=== PATIENT | male | born 1940 | race Caucasian/White ===

== ENCOUNTER 2017-12-27 19:39 | Observation (INO) ==
[2017-12-27] MEDS ORDERED: Dexamethasone 4 MG/ML VIAL IVP ONE (20:05)
[2017-12-27] MEDS ORDERED: Famotidine 20 MG/2 ML VIAL IVP ONE (20:05)
[2017-12-27] MEDS ORDERED: Ondansetron 4 MG/2 ML VIAL IVP ONE (20:20)
[2017-12-27] MEDS: *HR* EPINEPHrine 1 MG/ML AMPUL ONE ×2 (20:29→20:31)
[2017-12-27 21:12] LABS: Basophils % 0.1 %; Eosinophils # 0.1 K/mcL (0.0-0.6); Eosinophils % 0.7 %; Hematocrit 48.7 % (37.5-50.1); Immature Granulocytes % 0.2 % (0-4); Lymphocytes # 1.5 K/mcL (0.6-4.6); Lymphocytes % 17.3 %; Mean Corpuscular HGB Conc 32.9 g/dL (31.6-35.5); Mean Corpuscular Hemoglobin 31.8 pg (28.0-33.3); Mean Corpuscular Volume 96.8 fL (83.0-100.0); Mean Platelet Volume 9.2 fL (9.4-12.4); Monocytes # 0.3 K/mcL (0.0-1.3); Monocytes % 3.9 %; Neutrophils # 6.6 K/mcL (1.6-8.9); Platelet Count 185 K/mcL (140-400); Red Blood Count 5.03 M/mcL (4.19-5.50); Red Cell Distribution Width 13.1 % (11.5-14.5); Segmented Neutrophils % 77.8 %
[2017-12-27 21:39] LABS: Alanine Aminotransferase 13 Units/L (7-52); Albumin 4.1 g/dL (3.5-5.7); Albumin/Globulin Ratio 1.7 (1.1-2.2); Alkaline Phosphatase 70 Units/L (34-104); Aspartate Amino Transferase 17 Units/L (13-39); BUN/Creatinine Ratio 28 (6-26); Bilirubin,Total 0.6 mg/dL (0.3-1.0); Blood Urea Nitrogen 33 mg/dL (8-23); Calcium 9.4 mg/dL (8.6-10.3); Carbon Dioxide 26 mEq/L (23-29); Chloride 104 mEq/L (98-107); Globulin 2.4 g/dL (2.4-3.5); Glucose 149 mg/dL (70-105); Osmolality,Calculated 298 (280-300); Potassium 3.7 mEq/L (3.5-5.1); Sodium 139 mEq/L (136-145); Total Protein 6.5 g/dL (6.4-8.9); Troponin I < 0.03 ng/mL (< 0.04); eGFR For Non-African Americans 59 (> 60)
--- NOTE | 2017-12-27 22:03 | Emergency Department Note ---
Disposition Clinical Impression: Anaphylaxis Disposition: Admitted As Inpatient Condition: Good Time of Disposition: 22:19 Allergic Reaction HPI - General Chief complaint: ED Allergic Reaction Stated complaint: RICKIE Time Seen by Provider: 12/27/17 19:58 Source: patient Mode of arrival: ambulatory Limitations: no limitations Nursing Notes Reviewed: Yes Vital Signs Reviewed: Yes - History of Present Illness HPI Narrative: 77-year-old male presented emergency per for allergic reaction. Patient says that he had an ear infection was first taking amoxicillin he then said he was not getting better so he was seen today and given ciprofloxacin. Once he took one dose Isordil immediately felt very hot flushed and having a rash. He also had a hard time breathing since cause them to come to the emergency department. He did not take any medication for returning here he stays never taking the ciprofloxacin before. Patient otherwise says he has hypertension otherwise no other medical problems. This reaction to medications is never occurred to him in the past. - Related Data Home Medications Medication Instructions Recorded Confirmed Cetirizine HCl [Zyrtec] 10 mg PO DAILY PRN 12/27/17 12/27/17 Lisinopril-HCTZ 20-12.5 [Prinzide 1 tab PO DAILY 12/27/17 12/27/17 20-12.5] Naproxen [Naprosyn] 250 mg PO BID PRN 12/27/17 12/27/17 Rosuvastatin Calcium [Rosuvastatin 10 mg PO DAILY 12/27/17 12/27/17 Calcium] Terazosin [Hytrin] 1 mg PO HS 12/27/17 12/27/17 Allergies Allergy/AdvReac Type Severity Reaction Status Date / Time atorvastatin [From Lipitor] Allergy Cramping Verified 12/27/17 23:09 of the Muscles ciprofloxacin Allergy Difficulty Verified 12/27/17 23:09 Breathing Oxycodone AdvReac See Verified 12/27/17 23:09 Comments All systems ED: reviewed and negative except as stated. Review of Systems: As Per HPI Constitutional: Denies: fever, chills, weakness, weight change Eyes: Denies: eye pain, eye discharge, vision change ENT ED: Denies: ear pain, throat pain, dental pain, hearing loss, epistaxis, congestion, dysphagia Cardiovascular: Denies: chest pain, palpitations, dyspnea on exertion, edema, syncope Respiratory: Reports: dyspnea. Denies: cough, wheezes, hemoptysis, stridor Gastrointestinal: Denies: abdominal pain, nausea, vomiting, diarrhea, constipation, hematemesis, melena, hematochezia Genitourinary: Denies: urgency, dysuria, frequency, hematuria Musculoskeletal: Denies: back pain, neck pain, arthralgia, myalgia Integumentary: Denies: rash, abrasion, lesions Neurological: Denies: headache, weakness, numbness, paresthesias, confusion, abnormal gait, vertigo Psychiatric: Denies: anxiety, depression, suicidal thoughts, homicidal thoughts , auditory hallucinations, visual hallucinations Endocrine: Denies: fatigue Hematological/Lymphatic: Denies: easy bleeding, easy bruising Allergic/Immunologic: Denies: facial swelling, urticaria Past Medical History - Past Medical History Attestation: Yes The following information was validated with the patient. Source: patient Medical history: Reports: hypertension, other Surgical history: Reports: non-contributory - Social History Smoking Status: Current every day smoker Smokeless Tobacco Status: No Alcohol use: Reports: none Drug use: Reports: none Physical Exam - General Limitations: no limitations General appearance: alert - Head Head exam: atraumatic, normocephalic, normal inspection - Eye Eye exam: Present: normal appearance, PERRL, EOMI - ENT ENT exam: normal exam, normal oropharynx, mucous membranes moist - Neck Neck exam: Present: normal inspection, full ROM, trachea midline - Chest Chest inspection: Present: normal inspection, symmetric chest wall rise - Respiratory Respiratory exam: Present: normal lung sounds bilaterally, other (Decreased breath sound bilaterally). Absent: respiratory distress - Cardiovascular Cardiovascular exam: Present: regular rate, normal rhythm, normal heart sounds - Abdominal Exam Abdominal exam: Present: soft, Non-Tender. Absent: tenderness, distention, guarding, rebound, rigidity - Extremities Exam Extremities exam: Present: normal inspection, full ROM. Absent: tenderness, pedal edema - Back Exam Back exam: Present: normal inspection, full ROM. Absent: tenderness - Neurological Exam Neurological exam: Present: alert, oriented X3 - Skin Skin exam: Present: warm, dry, intact, normal color, rash (Generalized erythematous rash all over body.), erythema Course Course Narrative: Patient presented with anaphylactic reaction. We will give patient IM epi, Pepcid, Benadryl, Decadron. We will get basic labs including CBC and BMP. Most likely disposition will be admission. - Reevaluation(s) Reevaluation #1: Patient reevaluated in said he had a much better time breathing after receiving the medications. He does feel more comfortable at this time. There is no respiratory distress and no difficulty breathing. He does have increased breath sounds bilaterally when reevaluating him Time: 22:05 - Consultations Consultation #1: Spoke to the on-call hospitalist Dr. Sarkar who agreed to admit the patient to their service. Patient admitted in stable condition Time: 22:46 Vital Signs Temperature 98.9 F 12/27/17 19:47 Pulse Rate 99 12/27/17 19:47 Respiratory Rate 20 12/27/17 19:47 Blood Pressure 135/88 12/27/17 19:47 O2 Sat by Pulse Oximetry 92 12/27/17 19:47 Temperature 97.4 F L 12/28/17 03:49 Pulse Rate 68 12/28/17 03:49 Respiratory Rate 14 12/28/17 03:49 Blood Pressure 149/79 12/28/17 03:49 O2 Sat by Pulse Oximetry 95 12/28/17 03:49 Oxygen Delivery Oxygen Delivery Room Air Allergic Reaction - MDM Narrative Medical decision making narrative: 77-year-old male here for anaphylaxis. This is my most likely secondary to ciprofloxacin. Patient was given Pepcid, Decadron, Benadryl as well as intramuscular epinephrine. Patient responded well to this. He was able to breathe after this. Due to giving epinephrine we felt admission for observation overnight would be warranted. Patient agreed with the plan. Patient's labs showed no acute findings troponin was negative. Patient is going to be admitted to the hospitalist service. They did agree to accept the patient to their service. Patient admitted in stable condition - Medical Records Medical records reviewed: Yes I reviewed the patient's medical records. - Lab Data Lab results reviewed: Yes I reviewed the patient's lab results. Result diagrams: 12/27/17 21:01 12/27/17 21: Lab Results 12/27/17 12/27/17 12/27/17 Range/Units 21:01 21:01 21:01 WBC 8.5 (4.3-11.1) K/mcL RBC 5.03 (4.19-5.50) M/mcL Hgb 16.0 (12.9-16.9) g/dL Hct 48.7 (37.5-50.1) % MCV 96.8 (83.0-100.0) fL MCH 31.8 (28.0-33.3) pg MCHC 32.9 (31.6-35.5) g/dL RDW 13.1 (11.5-14.5) % Plt Count 185 (140-400) K/mcL MPV 9.2 L (9.4-12.4) fL Immature Gran % 0.2 (0-4) % Seg Neutrophils % 77.8 % Lymphocytes % 17.3 % Monocytes % 3.9 % Eosinophils % 0.7 % Basophils % 0.1 % Neutrophils # 6.6 (1.6-8.9) K/mcL Lymphocytes # 1.5 (0.6-4.6) K/mcL Monocytes # 0.3 (0.0-1.3) K/mcL Eosinophils # 0.1 (0.0-0.6) K/mcL Basophils # 0.0 (0.0-0.2) K/mcL Sodium 139 (136-145) mEq/L Potassium 3.7 (3.5-5.1) mEq/L Chloride 104 (98-107) mEq/L Carbon Dioxide 26 (23-29) mEq/L BUN 33 H (8-23) mg/dL Creatinine 1.19 (0.70-1.30) mg/dL Est GFR ( Amer) > 60 (> 60) Est GFR (Non-Af Amer) 59 L (> 60) BUN/Creatinine Ratio 28 H (6-26) Glucose 149 H (70-105) mg/dL Calculated Osmolality 298 (280-300) Calcium 9.4 (8.6-10.3) mg/dL Total Bilirubin 0.6 (0.3-1.0) mg/dL AST 17 (13-39) Units/L ALT 13 (7-52) Units/L Alkaline Phosphatase 70 (34-104) Units/L Troponin I < 0.03 (< 0.04) ng/mL B-Natriuretic Peptide 29 (Less than 100) pg/mL Serum Total Protein 6.5 (6.4-8.9) g/dL Albumin 4.1 (3.5-5.7) g/dL Globulin 2.4 (2.4-3.5) g/dL Albumin/Globulin Ratio 1.7 (1.1-2.2) - Radiology Data Radiology results reviewed: Yes I reviewed the patient's radiology results. - EKG Data EKG attestation: Yes I reviewed and interpreted this EKG. EKG results narrative: EKG done at 2031 review myself and the attending shows sinus rhythm at a rate of 85, SD interval 171, QRS 91, QTC [address] axis. No acute ST changes no acute T-wave changes no other signs of ischemia. No WPW/Brugada/HOCM. No heartstring, heart block, hypertrophy. EKG otherwise has no changes when compared with old one done 09/06/14 Attestation Statement - Attestation Attestation: I examined this patient and my medical decision-making was reviewed with the Resident Physician. I agree with the documented findings, disposition and treatment plan as described except to the extent set forth below. Findings consistent with anaphylactic shock. The patient has significant dyspnea and required epinephrine intramuscularly. He did respond to epinephrine as well as antihistamine therapy. He will be admitted for observation given age and half- life of ciprofloxacin which was the offending agent. I spent greater than 35 minute critical care time resuscitating this acutely ill patient suffering from anaphylactic shock. This was excluding billable procedures.
--- NOTE | 2017-12-28 02:04 | Internal Med History&Physical ---
Date of Encounter: 12/28/17 Time of Encounter: 01:59 Internal Medicine - H&P: HPI Chief complaint: rash,sob Admitted From: Home Plans for Post Hospital Care: Home History of present illness: Mr. Dukes is a 77 year old male presents with chief complaint of sudden onset of rash, shortness of breath. Patient states that he was being treated for left ear infection last month with amoxicillin however this did not resolve his symptoms and his PCP started him on ciprofloxacin. Patient took 1 dose of ciprofloxacin and immediately started having a diffuse whole body rash and difficulty breathing with chest heaviness. Patient was immediately to into the emergency room by his . Along the way his shortness of breath and rash continued to worsen. Patient denied syncope, confusion. In the emergency department patient was given Decadron, Pepcid, Benadryl as well as intramuscular epinephrine. His shortness of breath and rash improved. During my examination patient did not have any shortness of breath or rash. He continues to report left ear drainage but denies pain. The drainage is clear. He denies fever, chills. He does report he has had some rhinorrhea, sinus pressure in the past but currently does not have this. Past Med Surg Social Fam HX - Past Medical History Medical history: hypertension, other - Past Surgical History Surgical History: non-contributory - Social History Smoking Status: Current every day smoker Packs per day: 1/2 Smokeless Tobacco Status: No Alcohol use: none Drug use: none - Family History Father Age at : 89 Cause of : Alzheimers Hx Family Cardiac Disorders: Yes (HTN) Hx Family Respiratory Disorders: No Hx Family Cancer: No Hx Family GI Disorders: No Hx Family Genitourinary Disorders: No Hx Family Endocrine Disorder: No Hx Family Musculoskeletal Disorders: No Hx Family Neuromuscular Disorders: No Hx Family Neurologic Disorders: Yes (Alzheimers) Hx Family HEENT Disorders: No Hx Family Autoimmune Disorders: No Hx Family Reproductive Disorders: No Hx Family Psychosocial Disorders: No Hx Family Medical Disorders: No Mother Age at : 89 Cause of : Natural causes Hx Family Cardiac Disorders: Yes (Angina) Hx Family Respiratory Disorders: Yes (COPD) Hx Family Cancer: No Hx Family GI Disorders: No Hx Family Genitourinary Disorders: No Hx Family Endocrine Disorder: Yes (DM) Hx Family Musculoskeletal Disorders: No Hx Family Neuromuscular Disorders: No Hx Family Neurologic Disorders: No Hx Family HEENT Disorders: No Hx Family Autoimmune Disorders: No Hx Family Reproductive Disorders: No Hx Family Psychosocial Disorders: No Hx Family Medical Disorders: No Internal Medicine - H&P: Meds Cetirizine HCl [Zyrtec] 10 mg PO DAILY PRN 12/27/17 [History] Lisinopril-HCTZ 20-12.5 [Prinzide 20-12.5] 1 tab PO DAILY 12/27/17 [History] Naproxen [Naprosyn] 250 mg PO BID PRN 12/27/17 [History] Rosuvastatin Calcium [Rosuvastatin Calcium] 10 mg PO DAILY 12/27/17 [History] Terazosin [Hytrin] 1 mg PO HS 12/27/17 [History] 3 Allergy/AdvReac Type Severity Reaction Status Date / Time atorvastatin [From Lipitor] Allergy Cramping Verified 12/27/17 23:09 of the Muscles ciprofloxacin Allergy Difficulty Verified 12/27/17 23:09 Breathing Oxycodone AdvReac See Verified 12/27/17 23:09 Comments All Systems PM: A 10-system review of systems was performed and is negative for pertinent findings except as documented above in the HPI. Review of systems: Constitutional: Denies fever, chills HEENT: Denies headache, trauma, blurry vision, eye discharge, ear pain, neck pain, sore throat, rhinorrhea. Reports ear discharge Heart: Denies chest pain palpitations, LE edema Lungs: Poor shortness of breath, cough Abdomen: Denies abdominal pain nausea vomiting diarrhea MSK: Denies back pain, falls, joint pain Kidney: Denies dysuria, hematuria Skin: Denies rash, ulcers Neuro: Denies numbness and tingling Psych: denies anxiety, depression - Constitutional Vitals: Temp Pulse Resp BP Pulse Ox 97.7 F 68 14 143/81 96 12/27/17 23:30 12/27/17 23:30 12/27/17 23:30 12/27/17 23:30 12/27/17 23:30 Exam: General: pleasant, without distress HEENT: Head atraumatic, normocephalic, EOMI, PERRL, Moist Mucous Membranes, uvula midline. Patient has left ear serous drainage without erythema or pressure behind tympanic membrane. Right ear within normal limits. Neck: nontender to palpation, absent lymphadenopathy, Cardiovascualr: Regular rate and rhythm with no murmur, absent gallops or rubs, absent pedal edema, radial pulses 2 out of 4 Lungs: Clear to auscultation bilaterally, not in respiratory distress Abdomen: Soft nontender, nondistended positive bowel sounds, absent hepatomegaly Skin: warm and dry, absent rash, absent open wounds and nodules MSK: absent clubbing, cyanosis, joints without swelling Neuro: Cranial nerves II through XII intact, UE and LE sensation equal bilaterally, UE and LE strength 5/5, alert oriented 3, Psych: good insight and judgment Internal Med - H&P Results - Labs CBC & Chem 7: 12/27/17 21:01 12/27/17 21:01 - Assessment and plan (1) Anaphylaxis Current Visit: Yes Status: Resolved Assessment and plan: Secondary to ciprofloxacin Ciprofloxacin added to allergy list Patient vitals are stable. Rash and shortness of breath is resolved Benadryl when necessary We will observe patient overnight on telemetry and if stable in the morning of discharge. Qualifiers: Encounter type: initial encounter Qualified Code(s): T78.2XXA - Anaphylactic shock, unspecified, initial encounter (2) Otitis externa Current Visit: Yes Status: Acute Assessment and plan: Likely this otitis externa secondary to viral cause His serous drainage There also may be a component of seasonal allergy as he does report rhinorrhea, sinus pressure in the past as well as watery eyes Plan: Currently we will not put patient on any more antibiotics for this. Qualifiers: Otitis externa type: noninfectious Noninfectious otitis externa type: other type Chronicity: acute Laterality: right Qualified Code(s): H60.591 - Other noninfective acute otitis externa, right ear (3) DVT prophylaxis Current Visit: Yes Status: Acute Assessment and plan: Ambulate 3 times a day, ABCDs. (4) Hypertension Current Visit: Yes Status: Chronic Assessment and plan: Controlled. Continue lisinopril. Qualifiers: Hypertension type: essential hypertension Qualified Code(s): I10 - Essential (primary) hypertension - Time Spent With Patient Total time spent is greater than 50% in coordination of care (as documented) at patient's floor/unit and/or counseling patient:
[2017-12-28] MEDS ORDERED: Lisinopril-HCTZ 20-12.5mg TABLET PO SCH (09:00)
[2017-12-28 11:54] VITALS: BP 167/88
--- NOTE | 2017-12-28 14:51 | Discharge Summary ---
- NOTES TO OUTPATIENT PROVIDER Notes to Outpatient Provider: Mr. Quinones is a 77-year-old male who entered with anaphylactic reaction after taking by mouth ciprofloxacin. He developed shortness of breath and difficulty breathing with a. Macular papular rash. He was treated in the emergency room with Benadryl and prednisone and his signs and symptoms have since resolved. Patient states that his history is positive for the past several months for an otitis externa. He currently is being cared for by ENT and was prescribed Cipro otic drops which she has been on for the past month without resolution of the otitis externa and no allergic reaction to the topicals. He reports that his bearing maker had put in a tympanostomy tube which was created the secondary otitis externa due to excessive drainage. He last visited his ENT is when he was placed a few days ago on Cipro by mouth , and he stated he had only taken one tablet when he developed anaphylactic reaction. Today he denies any rash difficulty breathing dyspnea shortness of breath chest pain or pruritus. CBC with differential was obtained in the emergency room and is negative. BUN was slightly elevated at 33 with GFR of 59 glucose was elevated at 1 4090 does have history of type 2 diabetes. Troponins were drawn and were negative 1. We will be discharged ambulatory in a stable condition to his home accompanied by his to continue his home medications of lisinopril hydrochlorothiazide robust statin and Hytrin. He has a current appointment with his ENT on January 02 and he is to keep that appointment for follow-up. At this time there will be no additional antibiotics given pending follow-up with ENT Orders not resulted at time of discharge: none Date of Encounter: 12/28/17 Time of Encounter: 14:45 - Discharge Diagnosis (1) Anaphylaxis Priority: Primary Status: Resolved Assessment and Plan: Today he denies any pruritus rash itching or shortness of breath we will discharge him home Qualifiers: Encounter type: subsequent encounter Qualified Code(s): T78.2XXD - Anaphylactic shock, unspecified, subsequent encounter (2) Hypertension Priority: Secondary Status: Chronic Assessment and Plan: Review of vital signs shows that the patient is uncontrolled on his current medications he is to follow-up with primary care last of blood pressure was running stage II at 167/88. Qualifiers: Hypertension type: essential hypertension Qualified Code(s): I10 - Essential (primary) hypertension (3) Otitis externa Priority: Secondary Status: Acute Assessment and Plan: Patient reports that he has had otitis externa with treatment of Cipro otic drops for 1 month reports that he also had a tympanostomy tube placed per ENT and now he has copious amounts of drainage which contribute to the externa Patient is to follow-up with an already scheduled ENT appointment on 01/02/2018 Qualifiers: Otitis externa type: noninfectious Noninfectious otitis externa type: other type Chronicity: chronic Laterality: left Qualified Code(s): H60.8X2 - Other otitis externa, left ear (4) DVT prophylaxis Priority: Secondary Status: Resolved Hospital course: Mr. Dukes is a 77 year old male Discharge discussed with: patient, family - Time Spent with Patient Total time spent providing and/or coordinating discharge services: Less than 30 minutes - Discharge Medications Home Medications: Cetirizine HCl [Zyrtec] 10 mg PO DAILY PRN 12/27/17 [History] Lisinopril-HCTZ 20-12.5 [Prinzide 20-12.5] 1 tab PO DAILY 12/27/17 [History] Naproxen [Naprosyn] 250 mg PO BID PRN 12/27/17 [History] Rosuvastatin Calcium [Rosuvastatin Calcium] 10 mg PO DAILY 12/27/17 [History] Terazosin [Hytrin] 1 mg PO HS 12/27/17 [History] Allergies/Adverse Reactions: 3 Allergy/AdvReac Type Severity Reaction Status Date / Time atorvastatin [From Lipitor] Allergy Cramping Verified 12/27/17 23:09 of the Muscles ciprofloxacin Allergy Difficulty Verified 12/27/17 23:09 Breathing Oxycodone AdvReac See Verified 12/27/17 23:09 Comments Date of admission: 12/27/17 23:00 Primary care physician: Hyacinth Lizarraga DO Discharging clinician: Aicha Florence Anticipated date of discharge: 12/28/17 - Constitutional Vitals: Temp Pulse Resp BP Pulse Ox 98.2 F 65 16 167/88 95 12/28/17 11:52 12/28/17 11:52 12/28/17 11:52 12/28/17 11:52 12/28/17 11:52 General appearance: Present: A&O X 3, no acute distress, answers questions appropriately Exam: Stage 2 Hypertension noted, currently take Lisinopril/HCTZ , and Hytrin Roel f/u with PCP regarding elevation of b/p during stay to check b/p routinely mild elevations may be due to Benadryl administration for allergic reaction to Cipro PO. - Head Head exam: Present: atraumatic, normocephalic - Eye Eye exam: Present: PERRL, conjuntiva pink, sclera anicteric Pupils: Present: PERRL - ENT ENT exam: Present: mucous membranes moist - Neck Neck exam general surgery: Present: supple, trachea midline. Absent: lymphadenopathy - Respiratory Respiratory exam: Present: CTAB. Absent: accessory muscle use, rales, rhonchi, wheezes - Cardiovascular Cardiovascular exam: Present: RRR, +S1, +S2. Absent: diastolic murmur, gallop, rubs, systolic murmur - GI/Abdominal GI/Abdominal exam: Present: normal bowel sounds, soft, no peritoneal signs. Absent: distended, tenderness - Extremities Exam Extremities exam: Present: warm, radial pulses palpable and symmetrical. Absent : calf tenderness, cyanotic, pedal edema - Neurological Exam Neurological exam: Present: CN II-XII intact, oriented X3, no focal deficits. Absent: pronater drift, facial droop, speech deficit - Skin Skin exam: Present: dry, intact Additional comments: negative for acute rash - Patient Status Disposition: Home, Self-Care Condition: Good Functional capacity at discharge: independent ambulation - Discharge Instructions Instructions: Chronic Hypertension (DC) Follow Up With: Hyacinth Lizarraga DO [Primary Care Provider] - (Requested a follow up appointment in 7-10 days. ) - Diet and Activity Activity: resume usual activities as tolerated (To keep Jan 02 appointment with ENT )
--- NOTE | 2017-12-30 17:49 | Electrocardiograph Report ---
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
== END 2017-12-28 16:12 | disposition home or self-care (01) ==
LOC: EMEROOARM 19:39 → 3BNU 19:39
PROVIDERS: ADMIT Family Medicine; ATTEND Family Medicine

== ENCOUNTER 2019-11-24 00:52 | Inpatient (IN) ==
[2019-11-24] MEDS ORDERED: Ondansetron 4 MG/2 ML VIAL IVP ONE (01:13)
[2019-11-24] MEDS ORDERED: 0.9 % Sodium Chloride 1,000 ML IVC ONE (01:13)
[2019-11-24] MEDS ORDERED: Isovue-370 500 ML BOTTLE IVP ONE (01:13)
[2019-11-24 01:43] LABS: Bilirubin,Urine Large (Negative); Blood,Urine Small (Negative); Clarity,Urine Clear (Clear); Color,Urine Yellow (Yellow); Glucose,Urine (UA) 100 mg/dL (Normal); Ketones,Urine Trace mg/dL (Negative); Leukocyte Esterase,Urine Negative (Negative); Nitrite,Urine Negative (Negative); PH,Urine 5.5 pH Units (5.0-8.0); Protein,Urine 30 mg/dL (Neg-Trace); Specific Gravity,Urine >= 1.030 (1.010-1.025)
[2019-11-24 01:52] LABS: Prothrombin Time 11.7 Seconds (9.4-12.1)
[2019-11-24 01:54] LABS: Activated Partial Thrombo Time 31.9 Seconds (26.0-36.0)
[2019-11-24 01:55] LABS: Basophils % 0.3 %; Eosinophils # 0.1 K/mcL (0.0-0.6); Hemoglobin 15.1 g/dL (12.9-16.9); Immature Granulocytes % 0.3 % (0-4); Lymphocytes # 0.6 K/mcL (0.6-4.6); Lymphocytes % 6.6 %; Mean Corpuscular HGB Conc 32.1 g/dL (31.6-35.5); Mean Corpuscular Hemoglobin 31.6 pg (28.0-33.3); Mean Corpuscular Volume 98.3 fL (83.0-100.0); Mean Platelet Volume 9.9 fL (9.4-12.4); Monocytes # 0.5 K/mcL (0.0-1.3); Monocytes % 6.2 %; Neutrophils # 7.4 K/mcL (1.6-8.9); Platelet Count 187 K/mcL (140-400); Red Blood Count 4.78 M/mcL (4.19-5.50); Red Cell Distribution Width 13.2 % (11.5-14.5); Segmented Neutrophils % 85.6 %; White Blood Count 8.7 K/mcL (4.3-11.1)
[2019-11-24 01:58] LABS: Bacteria,Urine Few per hpf (None-Few); RBC,Urine 0-3 per hpf (0-3); Squamous Epithelial Cell,Urine Few per hpf (None-Few); WBC,Urine 0-3 per hpf (0-3)
[2019-11-24 02:16] LABS: Alanine Aminotransferase 180 Units/L (7-52); Albumin 3.6 g/dL (3.5-5.7); Albumin/Globulin Ratio 1.2 (1.1-2.2); Alkaline Phosphatase 430 Units/L (34-104); Aspartate Amino Transferase 65 Units/L (13-39); BUN/Creatinine Ratio 29 (6-26); Bilirubin,Indirect 2.3 mg/dL (0.0-1.0); Bilirubin,Total 6.3 mg/dL (0.3-1.0); Blood Urea Nitrogen 42 mg/dL (8-23); Calcium 9.1 mg/dL (8.6-10.3); Carbon Dioxide 27 mEq/L (23-29); Chloride 102 mEq/L (98-107); Globulin 2.9 g/dL (2.4-3.5); Glucose 106 mg/dL (70-105); Osmolality,Calculated 303 (280-300); Potassium 3.2 mEq/L (3.5-5.1); Sodium 141 mEq/L (136-145); Total Protein 6.5 g/dL (6.4-8.9); Troponin I 0.03 ng/mL (< 0.04); eGFR For African Americans 58 (> 60); eGFR For Non-African Americans 48 (> 60)
[2019-11-24 02:19] LABS: Lipase > 1800 Units/L (11-82)
[2019-11-24] MEDS ORDERED: Piperacillin/Tazobactam 3.375 GM in 0.9 % Sodium Chloride Mini Bag 100 ML IVPB ONE (04:11)
[2019-11-24] MEDS ORDERED: Potassium Chloride Elixir 20 MEQ/15 ML UDC PO ONE (05:03)
[2019-11-24] MEDS ORDERED: Ondansetron 4 MG/2 ML VIAL IVP PRN (05:49)
[2019-11-24] MEDS ORDERED: Naloxone 0.4 MG/ML INJ IVP PRN (05:49)
[2019-11-24] MEDS ORDERED: Ringers Solution, Lactated 1,000 ML IVC ONE (05:55)
[2019-11-24] MEDS ORDERED: Ringers Solution, Lactated 1,000 ML IVC SCH (07:00)
[2019-11-24] MEDS: Nicotine 14 MG PATCH.TD24 TD SCH (07:38)
[2019-11-24 09:20] LABS: Hepatitis B Surface Antigen Nonreactive (Nonreactive)
[2019-11-24 09:33] LABS: Chol/HDL Ratio 3.8 (0-4.9); Cholesterol 200 mg/dL (< 200); HDL Cholesterol 53 mg/dL (40-59); LDL Cholesterol,Calculated 126 mg/dL (< 100); Triglycerides 103 mg/dL (< 150)
[2019-11-24 09:48] LABS: Hepatitis C Virus Antibody Nonreactive (Nonreactive)
[2019-11-24 09:50] LABS: Hepatitis B Core IgM Nonreactive (Nonreactive)
[2019-11-24 09:51] LABS: Hepatitis A Antibody IgM Nonreactive (Nonreactive)
[2019-11-24] MEDS ORDERED: Piperacillin/Tazobactam 3.375 GM in 0.9 % Sodium Chloride Mini Bag 100 ML IVPB SCH (12:00)
[2019-11-24] MEDS: Ringers Solution, Lactated 1,000 ML IVC SCH ×2 (12:49→16:02)
[2019-11-24] MEDS ORDERED: *HR* Succinylcholine 200 MG/10 ML VIAL IVP ONE (14:52)
[2019-11-24] MEDS ORDERED: Ondansetron 4 MG/2 ML VIAL ONE (14:52)
[2019-11-24] MEDS ORDERED: *HR* FentaNYL (PF) 100 MCG/2 ML VIAL ONE (14:52)
[2019-11-24] MEDS ORDERED: Dexamethasone 4 MG/ML VIAL ONE (14:52)
[2019-11-24] MEDS ORDERED: Lidocaine -MPF 2% 2 ML VIAL ONE (14:52)
[2019-11-24] MEDS ORDERED: *HR* Propofol 200 MG/20 ML VIAL IVP ONE (14:53)
[2019-11-24] MEDS ORDERED: *HR* PHENYLEPHRINE 1,000 MCG/10 ML SYRINGE IVP ONE (15:16)
[2019-11-24] MEDS ORDERED: EPHEDrine 50 MG/ML VIAL ONE (15:20)
[2019-11-24] MEDS ORDERED: Indomethacin 50 MG SUPP.RECT RC ONE (15:45)
[2019-11-24] MEDS: Piperacillin/Tazobactam 3.375 GM in 0.9 % Sodium Chloride Mini Bag 100 ML IVPB SCH ×2 (17:17→23:04)
[2019-11-25] MEDS: Ringers Solution, Lactated 1,000 ML IVC SCH ×5 (00:59→21:29)
[2019-11-25 03:11] LABS: Basophils % 0.2 %; Hematocrit 39.3 % (37.5-50.1); Immature Granulocytes % 0.2 % (0-4); Lymphocytes # 0.6 K/mcL (0.6-4.6); Lymphocytes % 9.2 %; Mean Corpuscular HGB Conc 31.8 g/dL (31.6-35.5); Mean Corpuscular Hemoglobin 31.9 pg (28.0-33.3); Mean Corpuscular Volume 100.3 fL (83.0-100.0); Mean Platelet Volume 9.9 fL (9.4-12.4); Monocytes # 0.3 K/mcL (0.0-1.3); Monocytes % 4.2 %; Neutrophils # 5.1 K/mcL (1.6-8.9); Platelet Count 132 K/mcL (140-400); Red Blood Count 3.92 M/mcL (4.19-5.50); Red Cell Distribution Width 13.7 % (11.5-14.5); Segmented Neutrophils % 86.2 %
[2019-11-25 03:12] LABS: Hemoglobin 12.5 g/dL (12.9-16.9)
[2019-11-25 03:30] LABS: Alanine Aminotransferase 102 Units/L (7-52); Albumin 2.9 g/dL (3.5-5.7); Albumin/Globulin Ratio 1.3 (1.1-2.2); Alkaline Phosphatase 350 Units/L (34-104); Aspartate Amino Transferase 35 Units/L (13-39); BUN/Creatinine Ratio 37 (6-26); Bilirubin,Total 4.2 mg/dL (0.3-1.0); Blood Urea Nitrogen 46 mg/dL (8-23); Calcium 8.5 mg/dL (8.6-10.3); Carbon Dioxide 25 mEq/L (23-29); Chloride 106 mEq/L (98-107); Globulin 2.3 g/dL (2.4-3.5); Glucose 111 mg/dL (70-105); Magnesium 1.7 mg/dL (1.6-2.6); Osmolality,Calculated 301 (280-300); Phosphorous 4.3 mg/dL (2.7-4.5); Sodium 139 mEq/L (136-145); Total Protein 5.2 g/dL (6.4-8.9); eGFR For African Americans > 60 (> 60); eGFR For Non-African Americans 55 (> 60)
[2019-11-25] MEDS ORDERED: *HR* Succinylcholine 200 MG/10 ML VIAL IVP ONE (07:18)
[2019-11-25] MEDS ORDERED: *HR* Rocuronium Bromide 50 MG/5 ML VIAL ONE (07:18)
[2019-11-25] MEDS ORDERED: *HR* FentaNYL (PF) 100 MCG/2 ML VIAL ONE ×2 (07:18→08:53)
[2019-11-25] MEDS ORDERED: Lidocaine -MPF 2% 2 ML VIAL ONE (07:18)
[2019-11-25] MEDS ORDERED: *HR* Propofol 200 MG/20 ML VIAL IVP ONE (07:18)
[2019-11-25] MEDS ORDERED: Lidocaine HCL 4 ML Topical Solution (Laryng-O-Jet Kit Sterile Pak) TP ONE (07:18)
[2019-11-25] MEDS ORDERED: Isovue-300 50ML VIAL ONE (07:48)
[2019-11-25] MEDS: Piperacillin/Tazobactam 3.375 GM in 0.9 % Sodium Chloride Mini Bag 100 ML IVPB SCH ×3 (08:15→23:54)
[2019-11-25] MEDS ORDERED: Ondansetron 4 MG/2 ML VIAL ONE (08:29)
[2019-11-25] MEDS ORDERED: Dexamethasone 4 MG/ML VIAL ONE (08:29)
[2019-11-25] MEDS ORDERED: Neostigmine Methylsulfate 3 MG/3 ML SYRINGE ONE (08:29)
[2019-11-25] MEDS ORDERED: EPHEDrine 50 MG/ML VIAL ONE (08:30)
[2019-11-25] MEDS ORDERED: Naloxone 0.4 MG/ML INJ IVP PRN (09:29)
[2019-11-25] MEDS ORDERED: Ondansetron 4 MG/2 ML VIAL IVP PRN (09:29)
[2019-11-25] MEDS ORDERED: *HR* OxyCODONE/APAP 5/325 TABLET PO PRN (11:01)
[2019-11-25] MEDS ORDERED: Morphine Sulfate 2 MG/ML SYRINGE IVP PRN (11:02)
[2019-11-25] MEDS: Nicotine 14 MG PATCH.TD24 TD SCH (20:35)
[2019-11-26] MEDS: Ringers Solution, Lactated 1,000 ML IVC SCH (03:30)
[2019-11-26 07:47] LABS: Eosinophils % 0.1 %; Hematocrit 39.4 % (37.5-50.1); Hemoglobin 12.4 g/dL (12.9-16.9); Immature Granulocytes % 0.5 % (0-4); Lymphocytes # 0.9 K/mcL (0.6-4.6); Lymphocytes % 11.6 %; Mean Corpuscular HGB Conc 31.5 g/dL (31.6-35.5); Mean Corpuscular Hemoglobin 31.8 pg (28.0-33.3); Mean Platelet Volume 10.3 fL (9.4-12.4); Monocytes # 0.6 K/mcL (0.0-1.3); Monocytes % 7.3 %; Neutrophils # 6.4 K/mcL (1.6-8.9); Platelet Count 168 K/mcL (140-400); Red Cell Distribution Width 13.8 % (11.5-14.5); Segmented Neutrophils % 80.5 %
[2019-11-26 07:56] LABS: Alanine Aminotransferase 78 Units/L (7-52); Albumin 2.6 g/dL (3.5-5.7); Albumin/Globulin Ratio 1.1 (1.1-2.2); Alkaline Phosphatase 249 Units/L (34-104); Aspartate Amino Transferase 32 Units/L (13-39); BUN/Creatinine Ratio 32 (6-26); Bilirubin,Total 1.8 mg/dL (0.3-1.0); Blood Urea Nitrogen 33 mg/dL (8-23); Calcium 8.4 mg/dL (8.6-10.3); Carbon Dioxide 30 mEq/L (23-29); Chloride 105 mEq/L (98-107); Globulin 2.3 g/dL (2.4-3.5); Glucose 111 mg/dL (70-105); Magnesium 1.8 mg/dL (1.6-2.6); Osmolality,Calculated 296 (280-300); Phosphorous 1.8 mg/dL (2.7-4.5); Potassium 3.8 mEq/L (3.5-5.1); Sodium 139 mEq/L (136-145); Total Protein 4.9 g/dL (6.4-8.9); eGFR For African Americans > 60 (> 60); eGFR For Non-African Americans > 60 (> 60)
[2019-11-26] MEDS: Piperacillin/Tazobactam 3.375 GM in 0.9 % Sodium Chloride Mini Bag 100 ML IVPB SCH (08:18)
[2019-11-26] MEDS ORDERED: Nicotine 14 MG PATCH.TD24 TD SCH (09:00)
[2019-11-26 11:42] VITALS: BP 163/90
== END 2019-11-26 12:46 | disposition home or self-care (01) | DRG 417 ==
LOC: 3BNU 00:52 → EMEROOARM 00:52 → SUATTDRO 05:58 → 3BNU 06:18
PROVIDERS: ADMIT Student in an Organized Health Care Education/Training Program; ATTEND Internal Medicine

== ENCOUNTER 2021-04-17 20:42 | Inpatient (IN) ==
[2021-04-17] MEDS ORDERED: Isovue-370 500 ML BOTTLE IVP ONE (21:32)
[2021-04-17 21:43] LABS: Basophils # 0.1 K/mcL (0.0-0.2); Basophils % 0.7 %; Eosinophils # 0.2 K/mcL (0.0-0.6); Eosinophils % 2.3 %; Hematocrit 48.1 % (37.5-50.1); Hemoglobin 15.6 g/dL (12.9-16.9); Immature Granulocytes % 0.1 % (0-4); Lymphocytes # 1.7 K/mcL (0.6-4.6); Lymphocytes % 23.2 %; Mean Corpuscular HGB Conc 32.4 g/dL (31.6-35.5); Mean Corpuscular Hemoglobin 32.7 pg (28.0-33.3); Mean Corpuscular Volume 100.8 fL (83.0-100.0); Mean Platelet Volume 9.6 fL (9.4-12.4); Monocytes # 0.7 K/mcL (0.0-1.3); Neutrophils # 4.7 K/mcL (1.6-8.9); Platelet Count 217 K/mcL (140-400); Red Blood Count 4.77 M/mcL (4.19-5.50); Red Cell Distribution Width 12.7 % (11.5-14.5); Segmented Neutrophils % 64.7 %; White Blood Count 7.3 K/mcL (4.3-11.1)
[2021-04-17 21:50] LABS: Prothrombin Time 11.6 Seconds (9.4-12.1)
[2021-04-17 21:53] LABS: Activated Partial Thrombo Time 32.1 Seconds (26.0-36.0)
[2021-04-17 22:03] LABS: Alanine Aminotransferase 10 Units/L (7-52); Albumin 3.9 g/dL (3.5-5.7); Albumin/Globulin Ratio 1.6 (1.1-2.2); Alkaline Phosphatase 66 Units/L (34-104); Aspartate Amino Transferase 12 Units/L (13-39); BUN/Creatinine Ratio 28 (6-26); Bilirubin,Total 0.4 mg/dL (0.3-1.0); Blood Urea Nitrogen 33 mg/dL (8-23); Calcium 9.1 mg/dL (8.6-10.3); Carbon Dioxide 35 mEq/L (23-29); Chloride 102 mEq/L (98-107); Globulin 2.5 g/dL (2.4-3.5); Glucose 95 mg/dL (70-105); Osmolality,Calculated 299 (280-300); Potassium 3.7 mEq/L (3.5-5.1); Sodium 141 mEq/L (136-145); Total Protein 6.4 g/dL (6.4-8.9); Troponin I < 0.03 ng/mL (< 0.04); eGFR For African Americans > 60 (> 60); eGFR For Non-African Americans > 60 (> 60)
[2021-04-18 00:57] LABS: Bilirubin,Urine Negative (Negative); Blood,Urine Negative (Negative); Clarity,Urine Clear (Clear); Color,Urine Light-Yellow (Yellow); Glucose,Urine (UA) Normal (Normal); Ketones,Urine Negative (Negative); Leukocyte Esterase,Urine Negative (Negative); Nitrite,Urine Negative (Negative); PH,Urine 6.5 pH Units (5.0-8.0); Protein,Urine Trace mg/dL (Neg-Trace); Specific Gravity,Urine > 1.030 (1.010-1.025); Urobilinogen,Urine Normal (Normal)
[2021-04-18] MEDS ORDERED: Naloxone 0.4 MG/ML INJ IVP PRN (02:12)
[2021-04-18] MEDS ORDERED: Melatonin 3 MG TABLET PO PRN (02:12)
[2021-04-18] MEDS ORDERED: Ondansetron ODT 4 MG TAB.RAPDIS SL PRN (02:12)
[2021-04-18] MEDS ORDERED: Perflutren Lipid Microsphere 1.3 ML in 0.9 % Sodium Chloride 8.7 ML IVP PRN (02:32)
[2021-04-18 06:25] LABS: Prothrombin Time 11.6 Seconds (9.4-12.1)
[2021-04-18 06:47] LABS: Alanine Aminotransferase 9 Units/L (7-52); Albumin 3.4 g/dL (3.5-5.7); Albumin/Globulin Ratio 1.5 (1.1-2.2); Alkaline Phosphatase 58 Units/L (34-104); Aspartate Amino Transferase 12 Units/L (13-39); BUN/Creatinine Ratio 29 (6-26); Bilirubin,Total 0.3 mg/dL (0.3-1.0); Blood Urea Nitrogen 29 mg/dL (8-23); Calcium 8.7 mg/dL (8.6-10.3); Carbon Dioxide 28 mEq/L (23-29); Chloride 104 mEq/L (98-107); Cholesterol 216 mg/dL (< 200); Globulin 2.2 g/dL (2.4-3.5); Glucose 109 mg/dL (70-105); HDL Cholesterol 54 mg/dL (40-59); LDL Cholesterol,Calculated 143 mg/dL (< 100); LDL Cholesterol,Direct 143 mg/dL (75-193); Magnesium 1.9 mg/dL (1.6-2.6); Osmolality,Calculated 292 (280-300); Potassium 3.7 mEq/L (3.5-5.1); Sodium 138 mEq/L (136-145); Total Protein 5.6 g/dL (6.4-8.9); Triglycerides 95 mg/dL (< 150); Troponin I < 0.03 ng/mL (< 0.04); eGFR For African Americans > 60 (> 60); eGFR For Non-African Americans > 60 (> 60)
[2021-04-18 06:56] LABS: Folate 8.1 ng/mL (3.0-16.0)
[2021-04-18] MEDS: Aspirin Enteric Coated 325 MG Tablet PO SCH (08:25)
[2021-04-18] MEDS: Nicotine 21 MG PATCH.TD24 TD SCH (08:25)
[2021-04-18 09:21] LABS: Estimated Average Glucose 120 mg/dl; Hemoglobin A1C 5.8 %
[2021-04-19] MEDS: Aspirin 81 MG TAB.CHEW PO SCH (10:17)
[2021-04-19] MEDS: Aspirin Enteric Coated 325 MG Tablet PO SCH (10:20)
[2021-04-19] MEDS: Nicotine 21 MG PATCH.TD24 TD SCH (10:20)
[2021-04-19] MEDS: Lisinopril-HCTZ 20-12.5mg TABLET PO SCH (12:14)
[2021-04-19] MEDS: Loratadine 10 MG TABLET PO SCH (12:14)
[2021-04-19] MEDS: carvediloL 6.25 MG TABLET PO SCH (17:30)
[2021-04-20] MEDS ORDERED: *HR* Enoxaparin 40 MG/0.4 ML SYRINGE SQ SCH (06:00)
[2021-04-20] MEDS: Aspirin Enteric Coated 325 MG Tablet PO SCH (07:38)
[2021-04-20] MEDS: Loratadine 10 MG TABLET PO SCH (07:38)
[2021-04-20] MEDS: Nicotine 21 MG PATCH.TD24 TD SCH (07:39)
[2021-04-20] MEDS: carvediloL 6.25 MG TABLET PO SCH (07:39)
[2021-04-20] MEDS: Aspirin 81 MG TAB.CHEW PO SCH (07:39)
[2021-04-20] MEDS: Lisinopril-HCTZ 20-12.5mg TABLET PO SCH (07:41)
[2021-04-20 09:55] VITALS: TEMP 97.7
[2021-04-20] MEDS ORDERED: E-Z-PAQUE (BARIUM SULF) SUSP 1 BOTTLE PO ONE (11:40)
[2021-04-20] MEDS ORDERED: E-Z-HD (BARIUM SULF) SUSPENSION PO ONE (11:40)
[2021-04-20 13:30] VITALS: BP 135/72; PULSE 72; O2SAT 95
== END 2021-04-20 16:38 | disposition home or self-care (01) | DRG 65 ==
LOC: EMEROOARM 20:42 → 3NENU 20:42 → SUATTDRO 04-18 02:23 → 3NENU 04-18 02:48
PROVIDERS: ADMIT Internal Medicine; ATTEND Internal Medicine

== ENCOUNTER 2021-06-12 16:57 | Inpatient (IN) ==
[2021-06-12 18:12] LABS: Basophils % 0.6 %; Eosinophils # 0.2 K/mcL (0.0-0.6); Eosinophils % 2.3 %; Hemoglobin 16.6 g/dL (12.9-16.9); Immature Granulocytes % 0.5 % (0-4); Lymphocytes # 1.4 K/mcL (0.6-4.6); Lymphocytes % 20.8 %; Mean Corpuscular HGB Conc 32.5 g/dL (31.6-35.5); Mean Corpuscular Hemoglobin 32.5 pg (28.0-33.3); Monocytes # 0.5 K/mcL (0.0-1.3); Neutrophils # 4.5 K/mcL (1.6-8.9); Platelet Count 179 K/mcL (140-400); Red Cell Distribution Width 12.9 % (11.5-14.5); Segmented Neutrophils % 67.8 %; White Blood Count 6.6 K/mcL (4.3-11.1)
[2021-06-12 18:22] LABS: Alanine Aminotransferase 17 Units/L (7-52); Albumin 4.1 g/dL (3.5-5.7); Albumin/Globulin Ratio 1.4 (1.1-2.2); Alkaline Phosphatase 93 Units/L (34-104); Aspartate Amino Transferase 15 Units/L (13-39); BUN/Creatinine Ratio 27 (6-26); Bilirubin,Direct 0.1 mg/dL (0.0-0.2); Bilirubin,Indirect 0.4 mg/dL (0.0-1.0); Bilirubin,Total 0.5 mg/dL (0.3-1.0); Blood Urea Nitrogen 32 mg/dL (8-23); Calcium 9.4 mg/dL (8.6-10.3); Carbon Dioxide 34 mEq/L (23-29); Chloride 102 mEq/L (98-107); Globulin 2.9 g/dL (2.4-3.5); Glucose 89 mg/dL (70-105); Osmolality,Calculated 298 (280-300); Potassium 4.2 mEq/L (3.5-5.1); Sodium 141 mEq/L (136-145); Troponin I < 0.03 ng/mL (< 0.04); eGFR For African Americans > 60 (> 60); eGFR For Non-African Americans 59 (> 60)
[2021-06-12] MEDS ORDERED: Isovue-370 500 ML BOTTLE IVP ONE (18:33)
[2021-06-12] MEDS ORDERED: Albuterol 2.5 MG/3 ML NEBULIZER IH ONE (18:41)
[2021-06-12] MEDS ORDERED: *HR* Heparin 5,000 UNIT/ML VIAL IVP ONE (19:11)
[2021-06-12] MEDS ORDERED: *HR* Heparin 5,000 UNIT/ML VIAL IVP PRN ×2 (19:11)
[2021-06-12] MEDS ORDERED: *HR* Promethazine 25 MG/ML VIAL IM PRN (19:29)
[2021-06-12] MEDS ORDERED: Ondansetron 4 MG/2 ML VIAL IVP PRN (19:29)
[2021-06-12] MEDS ORDERED: Acetaminophen 325 MG TABLET PO PRN (19:29)
[2021-06-12] MEDS ORDERED: *HR* OxyCODONE Immed Rel 5 MG TABLET PO PRN (19:29)
[2021-06-12] MEDS ORDERED: Melatonin 3 MG TABLET PO PRN (19:29)
[2021-06-12] MEDS ORDERED: *HR* HYDROcodone/Acet 5/325 mg TABLET PO PRN (19:29)
[2021-06-12] MEDS ORDERED: Naloxone 0.4 MG/ML INJ IVP PRN (19:29)
[2021-06-12] MEDS ORDERED: Perflutren Lipid Microsphere 1.3 ML in 0.9 % Sodium Chloride 8.7 ML IVP PRN (19:31)
[2021-06-12] MEDS: Heparin 25,000UNIT/250ML 1/2NS 25,000 UNIT/250 ML IV.SOLN IVC SCH (19:34)
[2021-06-12 19:47] LABS: Mean Corpuscular HGB Conc 32.2 g/dL (31.6-35.5); Mean Corpuscular Volume 99.6 fL (83.0-100.0); Mean Platelet Volume 9.2 fL (9.4-12.4); Platelet Count 158 K/mcL (140-400); Red Blood Count 4.62 M/mcL (4.19-5.50); Red Cell Distribution Width 13.1 % (11.5-14.5); White Blood Count 6.8 K/mcL (4.3-11.1)
[2021-06-12 19:49] LABS: Hemoglobin 14.8 g/dL (12.9-16.9)
[2021-06-12 19:56] LABS: Heparin anti-factor XA UFH < 0.04 IU/mL (0.30-0.70)
[2021-06-12 19:57] LABS: INR 1.1; Prothrombin Time 12.5 Seconds (9.4-12.1)
[2021-06-12] MEDS ORDERED: Warfarin perPT PO PRN (20:34)
[2021-06-13 01:38] LABS: Basophils % 0.4 %; Eosinophils # 0.2 K/mcL (0.0-0.6); Eosinophils % 2.1 %; Hematocrit 43.1 % (37.5-50.1); Hemoglobin 14.2 g/dL (12.9-16.9); Immature Granulocytes % 0.3 % (0-4); Lymphocytes # 1.9 K/mcL (0.6-4.6); Lymphocytes % 25.6 %; Mean Corpuscular HGB Conc 32.9 g/dL (31.6-35.5); Mean Corpuscular Hemoglobin 32.2 pg (28.0-33.3); Mean Corpuscular Volume 97.7 fL (83.0-100.0); Mean Platelet Volume 9.2 fL (9.4-12.4); Monocytes # 0.7 K/mcL (0.0-1.3); Neutrophils # 4.6 K/mcL (1.6-8.9); Platelet Count 152 K/mcL (140-400); Red Blood Count 4.41 M/mcL (4.19-5.50); Red Cell Distribution Width 12.9 % (11.5-14.5); Segmented Neutrophils % 62.6 %; White Blood Count 7.3 K/mcL (4.3-11.1)
[2021-06-13 01:51] LABS: INR 1.1; Prothrombin Time 12.8 Seconds (9.4-12.1)
[2021-06-13 01:59] LABS: BUN/Creatinine Ratio 28 (6-26); Blood Urea Nitrogen 31 mg/dL (8-23); Calcium 8.7 mg/dL (8.6-10.3); Carbon Dioxide 28 mEq/L (23-29); Chloride 104 mEq/L (98-107); Glucose 103 mg/dL (70-105); Osmolality,Calculated 291 (280-300); Sodium 137 mEq/L (136-145); Troponin I 0.03 ng/mL (< 0.04); eGFR For African Americans > 60 (> 60); eGFR For Non-African Americans > 60 (> 60)
[2021-06-13] MEDS: Cyanocobalamin (B-12) 1,000 MCG/ML VIAL SQ SCH (14:52)
[2021-06-13] MEDS: carvediloL 6.25 MG TABLET PO SCH (17:45)
[2021-06-13] MEDS: Heparin 25,000UNIT/250ML 1/2NS 25,000 UNIT/250 ML IV.SOLN IVC SCH ×2 (17:52→20:49)
[2021-06-13] MEDS ORDERED: *HR* Warfarin 4 MG TABLET PO ONE (18:00)
[2021-06-14 05:12] LABS: Basophils # 0.1 K/mcL (0.0-0.2); Basophils % 0.7 %; Eosinophils # 0.2 K/mcL (0.0-0.6); Eosinophils % 2.4 %; Hematocrit 48.1 % (37.5-50.1); Hemoglobin 15.6 g/dL (12.9-16.9); Immature Granulocytes % 0.6 % (0-4); Lymphocytes # 1.7 K/mcL (0.6-4.6); Mean Corpuscular HGB Conc 32.4 g/dL (31.6-35.5); Mean Corpuscular Hemoglobin 31.8 pg (28.0-33.3); Mean Corpuscular Volume 98.2 fL (83.0-100.0); Mean Platelet Volume 9.3 fL (9.4-12.4); Monocytes # 0.6 K/mcL (0.0-1.3); Monocytes % 7.9 %; Neutrophils # 4.6 K/mcL (1.6-8.9); Platelet Count 177 K/mcL (140-400); Red Cell Distribution Width 12.9 % (11.5-14.5); Segmented Neutrophils % 64.4 %; White Blood Count 7.2 K/mcL (4.3-11.1)
[2021-06-14 05:22] LABS: INR 1.1; Prothrombin Time 11.9 Seconds (9.4-12.1)
[2021-06-14 05:30] LABS: BUN/Creatinine Ratio 26 (6-26); Blood Urea Nitrogen 27 mg/dL (8-23); Calcium 9.3 mg/dL (8.6-10.3); Carbon Dioxide 26 mEq/L (23-29); Chloride 103 mEq/L (98-107); Glucose 108 mg/dL (70-105); Osmolality,Calculated 290 (280-300); Potassium 4.1 mEq/L (3.5-5.1); Sodium 137 mEq/L (136-145); eGFR For African Americans > 60 (> 60); eGFR For Non-African Americans > 60 (> 60)
[2021-06-14] MEDS: Cyanocobalamin (B-12) 1,000 MCG/ML VIAL SQ SCH (07:55)
[2021-06-14] MEDS: Aspirin 81 MG TAB.CHEW PO SCH (07:56)
[2021-06-14] MEDS: Lisinopril-HCTZ 20-12.5mg TABLET PO SCH (07:56)
[2021-06-14] MEDS: carvediloL 6.25 MG TABLET PO SCH ×2 (14:36→16:42)
[2021-06-14] MEDS ORDERED: *HR* Warfarin 4 MG TABLET PO ONE (18:00)
[2021-06-14] MEDS: *HR* Enoxaparin 100 MG/ML SYRINGE SQ SCH (18:20)
[2021-06-15] MEDS: *HR* Enoxaparin 100 MG/ML SYRINGE SQ SCH ×2 (05:50→17:22)
[2021-06-15 06:00] LABS: INR 1.2
[2021-06-15] MEDS: Lisinopril-HCTZ 20-12.5mg TABLET PO SCH (08:30)
[2021-06-15] MEDS: carvediloL 6.25 MG TABLET PO SCH ×2 (08:30→17:22)
[2021-06-15] MEDS: Aspirin 81 MG TAB.CHEW PO SCH (08:31)
[2021-06-15] MEDS: Cyanocobalamin (B-12) 1,000 MCG/ML VIAL SQ SCH (08:31)
[2021-06-15] MEDS ORDERED: *HR* Warfarin 4 MG TABLET PO ONE (18:00)
[2021-06-16] MEDS: *HR* Enoxaparin 100 MG/ML SYRINGE SQ SCH ×2 (05:35→18:56)
[2021-06-16 08:29] LABS: INR 1.3; Prothrombin Time 14.9 Seconds (9.4-12.1)
[2021-06-16 10:19] LABS: Basophils % 0.6 %; Eosinophils # 0.1 K/mcL (0.0-0.6); Eosinophils % 1.7 %; Hematocrit 47.3 % (37.5-50.1); Immature Granulocytes % 0.4 % (0-4); Lymphocytes # 1.7 K/mcL (0.6-4.6); Mean Corpuscular HGB Conc 33.8 g/dL (31.6-35.5); Mean Corpuscular Hemoglobin 33.1 pg (28.0-33.3); Mean Corpuscular Volume 97.9 fL (83.0-100.0); Mean Platelet Volume 9.3 fL (9.4-12.4); Monocytes # 0.5 K/mcL (0.0-1.3); Monocytes % 7.4 %; Neutrophils # 4.5 K/mcL (1.6-8.9); Platelet Count 217 K/mcL (140-400); Red Blood Count 4.83 M/mcL (4.19-5.50); Segmented Neutrophils % 64.9 %; White Blood Count 6.9 K/mcL (4.3-11.1)
[2021-06-16 10:26] LABS: INR 1.4; Prothrombin Time 15.1 Seconds (9.4-12.1)
[2021-06-16] MEDS: Lisinopril-HCTZ 20-12.5mg TABLET PO SCH (12:21)
[2021-06-16] MEDS: Aspirin 81 MG TAB.CHEW PO SCH (12:21)
[2021-06-16] MEDS: Cyanocobalamin (B-12) 1,000 MCG/ML VIAL SQ SCH (12:21)
[2021-06-16] MEDS: carvediloL 6.25 MG TABLET PO SCH (12:21)
[2021-06-16] MEDS ORDERED: *HR* Warfarin 4 MG TABLET PO ONE (18:00)
[2021-06-17] MEDS: *HR* Enoxaparin 100 MG/ML SYRINGE SQ SCH ×2 (05:53→17:40)
[2021-06-17 07:07] LABS: INR 1.4; Prothrombin Time 15.3 Seconds (9.4-12.1)
[2021-06-17] MEDS: Cyanocobalamin (B-12) 1,000 MCG/ML VIAL SQ SCH (08:17)
[2021-06-17] MEDS: carvediloL 6.25 MG TABLET PO SCH ×2 (08:18→17:39)
[2021-06-17] MEDS: Aspirin 81 MG TAB.CHEW PO SCH (08:18)
[2021-06-17] MEDS: Lisinopril-HCTZ 20-12.5mg TABLET PO SCH (08:18)
[2021-06-17] MEDS ORDERED: *HR* Warfarin 5 MG TABLET PO ONE (18:00)
[2021-06-18 06:36] LABS: Hematocrit 44.7 % (37.5-50.1); Hemoglobin 14.9 g/dL (12.9-16.9); Mean Corpuscular HGB Conc 33.3 g/dL (31.6-35.5); Mean Corpuscular Hemoglobin 32.5 pg (28.0-33.3); Mean Corpuscular Volume 97.4 fL (83.0-100.0); Mean Platelet Volume 9.1 fL (9.4-12.4); Platelet Count 193 K/mcL (140-400); Red Blood Count 4.59 M/mcL (4.19-5.50); Red Cell Distribution Width 13.2 % (11.5-14.5); White Blood Count 5.8 K/mcL (4.3-11.1)
[2021-06-18 06:45] LABS: INR 1.4; Prothrombin Time 15.8 Seconds (9.4-12.1)
[2021-06-18 07:29] LABS: BUN/Creatinine Ratio 28 (6-26); Blood Urea Nitrogen 31 mg/dL (8-23); Calcium 8.8 mg/dL (8.6-10.3); Carbon Dioxide 26 mEq/L (23-29); Chloride 103 mEq/L (98-107); Glucose 105 mg/dL (70-105); Osmolality,Calculated 289 (280-300); Sodium 136 mEq/L (136-145); eGFR For African Americans > 60 (> 60); eGFR For Non-African Americans > 60 (> 60)
[2021-06-18] MEDS: Lisinopril-HCTZ 20-12.5mg TABLET PO SCH ×2 (07:51→07:52)
[2021-06-18] MEDS: Cyanocobalamin (B-12) 1,000 MCG/ML VIAL SQ SCH (07:52)
[2021-06-18] MEDS: Aspirin 81 MG TAB.CHEW PO SCH (07:52)
[2021-06-18] MEDS: carvediloL 6.25 MG TABLET PO SCH ×2 (07:52→17:24)
[2021-06-18] MEDS: *HR* Enoxaparin 100 MG/ML SYRINGE SQ SCH ×2 (07:53→17:24)
[2021-06-18] MEDS ORDERED: *HR* Warfarin 5 MG TABLET PO ONE (18:00)
[2021-06-19 01:28] LABS: INR 1.6; Prothrombin Time 17.5 Seconds (9.4-12.1)
[2021-06-19] MEDS: *HR* Enoxaparin 100 MG/ML SYRINGE SQ SCH ×2 (05:32→17:27)
[2021-06-19] MEDS: Lisinopril-HCTZ 20-12.5mg TABLET PO SCH (09:32)
[2021-06-19] MEDS: Aspirin 81 MG TAB.CHEW PO SCH (09:33)
[2021-06-19] MEDS: carvediloL 6.25 MG TABLET PO SCH ×2 (09:33→17:27)
[2021-06-19 12:02] VITALS: O2SAT 98
[2021-06-19 16:01] VITALS: BP 119/66; PULSE 83; TEMP 98.4
[2021-06-19] MEDS ORDERED: *HR* Warfarin 5 MG TABLET PO ONE (18:00)
== END 2021-06-19 18:45 | disposition home or self-care (01) | DRG 175 ==
LOC: 3NENU 16:57 → EMEROOARM 16:57 → SUATTDRO 19:39 → 3NENU 20:50 → SUATTDRO 06-13 12:49
PROVIDERS: ADMIT Internal Medicine; ATTEND General Practice